=== PATIENT | female | born 1980 | race Two or more races ===

== ENCOUNTER 2021-09-21 11:28 | Emergency (ER) | payer OTHER ==
[~2021-09-21] VITALS: Ht 172.7 cm; Wt 77.1 kg
[~2021-09-21 11:28] MED LIST: PEPCI PO; WELLBUTRIN XL300 MG PO
== END 2021-09-21 13:54 | disposition home or self-care (01) ==
LOC: ER 11:28
DX: R51.9 Headache, unspecified (principal)

== ENCOUNTER 2021-09-26 06:00 | Inpatient (IN) | payer OTHER ==
[2021-09-26] MEDS ORDERED: TRAZODONE HCL50 MG (11:30)
[2021-09-26] MEDS ORDERED: RESTORIL30 MG (11:30)
[2021-09-26] MEDS ORDERED: ACID-PEP20 MG PO (11:31)
[2021-09-28] MEDS ORDERED: ULTRAM50 MG PO (16:06)
== END 2021-09-28 18:31 | disposition home or self-care (01) | DRG 349 ==
LOC: CIR.AMB 06:00 → SURH 10:53 → O/R 10:53 → SURH 14:26
PROVIDERS: ADMIT Surgery; ATTEND Surgery
PROC: 0DUR07Z Supplement Anal Sphincter with Autologous Tissue Substitute, Open Approach (ICD-10-PCS; principal; 2021-09-26 06:45)
DX: K60.1 Chronic anal fissure (principal); R15.9 Full incontinence of feces; K59.4 Anal spasm; K62.81 Anal sphincter tear (healed) (nontraumatic) (old); K62.89 Other specified diseases of anus and rectum

== ENCOUNTER 2021-10-22 06:30 | Inpatient (IN) | payer OTHER ==
[~2021-10-22] VITALS: Ht 172.7 cm; Wt 77.1 kg
[~2021-10-22 06:30] MED LIST changes: +ACID-PEP20 MG PO; +RESTORIL30 MG; +TRAZODONE HCL50 MG; +ULTRAM50 MG PO
[2021-10-30] MEDS ORDERED: LOPERAMIDE2 MG PO (08:23)
[2021-10-30] MEDS ORDERED: MEGESTROL400 MG/11 PO (08:24)
[2021-10-30] MEDS ORDERED: ONDANSETRON ODT4 MG PO (08:24)
[2021-10-30] MEDS ORDERED: AMOX1TAB5 PO (08:25)
== END 2021-10-30 14:12 | disposition home or self-care (01) | DRG 857 ==
LOC: ER 06:30 → SEC-K 08:55 → SURH 08:55 → O/R 14:20 → SURH 14:30
PROVIDERS: ADMIT Surgery; ATTEND Surgery
PROC: 0D1B4Z4 Bypass Ileum to Cutaneous, Percutaneous Endoscopic Approach (ICD-10-PCS; principal; 2021-10-22 15:15)
PROC: 8E0ZXY6 Isolation (ICD-10-PCS; 2021-10-24)
DX: T81.43XA Infection following a procedure, organ and space surgical site, initial encounter (principal); K61.1 Rectal abscess; K91.89 Other postprocedural complications and disorders of digestive system; K56.7 Ileus, unspecified; N39.0 Urinary tract infection, site not specified; A04.72 Enterocolitis due to Clostridium difficile, not specified as recurrent; R15.9 Full incontinence of feces; F41.8 Other specified anxiety disorders; K62.89 Other specified diseases of anus and rectum; E66.3 Overweight; Z68.25 Body mass index [BMI] 25.0-25.9, adult

== ENCOUNTER 2022-02-13 11:15 | Inpatient (IN) | payer OTHER ==
[~2022-02-13] VITALS: Ht 172.7 cm; Wt 81.6 kg
[~2022-02-13 11:15] MED LIST changes: +AMOX1TAB5 PO; +LOPERAMIDE2 MG PO; +MEGESTROL400 MG/11 PO; +ONDANSETRON ODT4 MG PO
[2022-02-21] MEDS ORDERED: INTESTINEX680 M1 PO (08:27)
[2022-02-21] MEDS ORDERED: PERCOCET 5-3251 EACH PO (08:28)
[2022-02-21] MEDS ORDERED: NEURONTIN300 MG PO (08:28)
== END 2022-02-21 10:49 | disposition home or self-care (01) | DRG 348 ==
LOC: O/R 02-18 05:59 → SURG 02-18 05:59
PROVIDERS: ADMIT Surgery; ATTEND Surgery
PROC: 0DBB4ZZ Excision of Ileum, Percutaneous Endoscopic Approach (ICD-10-PCS; principal; 2022-02-18 11:00)
DX: Z43.2 Encounter for attention to ileostomy (principal); T81.30XA Disruption of wound, unspecified, initial encounter; R15.9 Full incontinence of feces; K59.4 Anal spasm; K62.81 Anal sphincter tear (healed) (nontraumatic) (old); Z20.822 Contact with and (suspected) exposure to COVID-19

== ENCOUNTER 2022-08-14 06:53 | Inpatient (IN) | payer OTHER ==
[~2022-08-14] VITALS: Ht 172.7 cm; Wt 86.2 kg
[~2022-08-14 06:53] MED LIST changes: +INTESTINEX680 M1 PO; +NEURONTIN300 MG PO; +PERCOCET 5-3251 EACH PO
[2022-08-18] MEDS ORDERED: KETO10TA2 PO (13:24)
== END 2022-08-18 15:21 | disposition home or self-care (01) | DRG 392 ==
LOC: ER 06:53 → SEC-K 11:14 → SURH 11:14 → O/R 11:14 → SURH 14:33
PROVIDERS: ADMIT Surgery; ATTEND Surgery
PROC: 3E0T3BZ Introduction of Anesthetic Agent into Peripheral Nerves and Plexi, Percutaneous Approach (ICD-10-PCS; 2022-08-14)
PROC: 0DJD7ZZ Inspection of Lower Intestinal Tract, Via Natural or Artificial Opening (ICD-10-PCS; principal; 2022-08-14 12:15)
DX: K52.89 Other specified noninfective gastroenteritis and colitis (principal); K62.89 Other specified diseases of anus and rectum; Z20.822 Contact with and (suspected) exposure to COVID-19

== ENCOUNTER 2023-01-23 09:36 | Inpatient (IN) | payer OTHER ==
[~2023-01-23] VITALS: Ht 172.7 cm; Wt 86.2 kg
[~2023-01-23 09:36] MED LIST changes: +KETO10TA2 PO
[2023-01-24] MEDS ORDERED: BUPRO PO ×2 (11:06→11:07)
[2023-01-24] MEDS ORDERED: RESTORIL30 M1 PO (11:06)
[2023-01-27] MEDS ORDERED: BUPROPION XL150 MG (08:07)
[2023-01-27] MEDS ORDERED: TRAZODONE HCL300 MG (08:08)
[2023-01-28] MEDS ORDERED: NEURONTIN300 MG PO (08:30)
[2023-01-28] MEDS ORDERED: PERCOCET 5-3251 EACH PO (08:30)
[2023-01-28] MEDS ORDERED: LEVSIN/SL0.125 MG SL (08:31)
== END 2023-01-28 11:54 | disposition home or self-care (01) | DRG 748 ==
LOC: O/R 01-27 05:37 → SURG 01-27 07:00 → SURH 01-27 10:06 → SURG 01-27 11:30 → SURH 01-28 11:54
PROVIDERS: ADMIT Surgery; ATTEND Surgery
PROC: 3E0T3BZ Introduction of Anesthetic Agent into Peripheral Nerves and Plexi, Percutaneous Approach (ICD-10-PCS; 2023-01-27)
PROC: 0JQC0ZZ Repair Pelvic Region Subcutaneous Tissue and Fascia, Open Approach (ICD-10-PCS; principal; 2023-01-27 07:00)
DX: N81.6 Rectocele (principal); Z20.822 Contact with and (suspected) exposure to COVID-19